=== PATIENT | male | born 1985 | race Caucasian/White ===

== ENCOUNTER 2024-10-08 03:29 | Emergency (ER) | payer BC, SELFPAY ==
[2024-10-08 03:33] VITALS: BP 142/87; PULSE 89; RESP 18; TEMP 36.5; O2SAT 98; BMI 30.3
--- NOTE | 2024-10-08 03:35 | ED_ITS ---
HPI - General Adult General Chief complaint: Sore Throat Stated complaint: tonsillitis Time Seen by Provider: 10/08/24 03:35 History of Present Illness HPI narrative: Patient is a 39-year-old gentleman comes in today with pharyngitis. He has had symptoms for last 3-4 days and was seen 2 days ago at [facility] 1 had negative strep swab. Patient states he is having troubles eating and drinking due to the pharyngitis. He has no with significant midline shift or swelling. He has some small ulcerations on the posterior pharynx. Patient has had no cough no shortness of breath no difficulties with breathing no fevers or chills. Related Data Home Medications ?Medication ?Instructions ?Recorded ?Confirmed No Known Home Medications 10/08/24 10/08/24 Allergies Allergy/AdvReac Type Severity Reaction Status Date / Time No Known Drug Allergies Allergy Verified 10/08/24 03:36 Review of Systems Status of ROS: Reports: 10 or more systems reviewed and unremarkable except as noted in History and below Exam Narrative: Exam Narrative: EXAM GENERAL: Patient appears comfortable and well. EYES: No scleral icterus. ENT: Pharyngeal injection with aphthous ulcerations. No midline shift or tonsillar enlargement. Erythema noted. THYROID: no thyroid nodules or thyromegaly. LYMPH: No supraclavicular or cervical lymphadenopathy. SKIN: Visible skin seen during exam normal or with benign process only. EXT: No dependent lower extremity pedal edema. HEART: Regular rate and rhythm with no murmurs, rubs, or gallops. LUNGS: Clear to auscultation bilaterally with no crackles or wheezes. ABD: Soft, non tender, non distended. PSYCH: Good eye contact, speech is not pressured. Course Course ED Course: Patient seen and examined. I do think that we can help him with his symptoms with short course of prednisone. I did not repeat his a rapid strep swab or any other testing as I do not believe that would be helpful. I did treated with prednisone 20 mg b.i.d. for 5 days with outpatient follow-up as needed. Discharge Plan Discharge Clinical Impression: Pharyngitis Patient Disposition: Home, Self-Care Condition: Stable Instructions: Pharyngitis (ED) Additional Instructions: Prednisone as directed Tylenol Rest Fluids Follow-up with your doctor as needed. Activity Level: No Restrictions Discharge Diet: Regular Stand Alone Forms: Pet[employer] Info Instructions
[2024-10-08 03:42] VITALS: BP 132/74; PULSE 81; RESP 18; TEMP 36.5; O2SAT 98
[2024-10-08 03:43] VITALS: BP 132/74; PULSE 81; RESP 18; TEMP 36.5
--- OUTSIDE RECORDS SUMMARY | 2024-10-08 03:49 | XMS_ITS | Clinical Summary ---
Author Organization [facility] Address [address] [place] [id number] Care Team Providers Care Meter Tester Polyphase Name Role Phone Pcp, No Primary Care Provider Unavailabl e Allergies Active Allergy Reactions Criticality Noted Date Comments Sulfa (Sulfonamide Antibiotics) *Unknown 02/03/2017 Reaction occurred during infancy, unsure of reaction Medications * This document contains information received from the source organization and may not represent a complete record from that organization. sertraline (ZOLOFT) 50 mg tablet Take 50 mg by mouth. 03/14/2019 Active lidocaine (viscous) 2 % liquidIndication s:Sore throat,Tonsillit is Swish and spit 15 mL by mouth every 4 hours if needed for Sore Throat. 100 mL 10/05/2024 Active Active Problems Problem Noted Date Diagnosed Date Tinea pedis of both feet 08/13/2017 Routine general medical exam ination at a health care facility 02/03/2017 Family history of diabetes mellitus 02/03/2017 Encounters Date Type Department Care Team Description 10/05/2024 8:51 AM CDT - 10/05/2024 10:14 AM CDT Emergency [facility] [address] [place] [address] Zaheer Loera MD Sore throat (Primary Dx); Tonsillitis Discharge Disposition: Home Self Care 10/05/2024 Travel from Last 3 Months Immunizations Immunization Administration Dates Next Due Tdap 02/03/2017 Family History Medical History Relation Name Comments Stroke Father Diabetes Maternal Grandfather Diabetes Maternal Grandmother Diabetes Mother Diabetes Other Relation Name Status Comments Father Alive Maternal Grandfather Maternal Grandmother Mother Other Alive Social History Tobacco Use Types Packs/Day Years Used Date Smoking Tobacco: Former Cigarettes Q uit: 01/24/2010 Smokeless Tobacco: Never Comments:cigarette or two on the weekends Alcohol Use Standard Drinks/Week Comments Yes 0 (1 standard drink = 0.6 oz pur e alcohol) not currently Interpersonal Safety Answer Date Record ed Are you being hit, kicked, p ushed or yelled at (see row info)? No 10/05/2024 Interpersonal Safety Abuse 12 - 18 Not on file 10/05/2024 Interpersonal Safety Ambulatory Vulnerability No t on file 10/05/2024 Sex and Gender Information Value Date Recorded Sex Assigned at Not on file Legal Sex Male 1:21 PM CDT Gender Identity Not on file Sexual Orientation Not on file Obstetrics History Last Filed Vital Signs Vital Sign Reading Time Taken Comments Blood Pressure 145/89 10/05/2024 8:20 AM CDT Pulse 88 10/05/2024 8:20 AM CDT Temperature 37.2 C (98.9 F) 10/05/2024 8:20 AM CDT Respiratory Rate 18 10/05/2024 8:20 AM CDT Oxygen Saturation 96% 10/05/2024 8:20 AM CDT Inhaled Oxygen Concentration - - Weight 94.8 kg (209 lb) 10/05/2024 8:25 AM CDT Height 175.3 cm (5' 9) 10/05/2024 8:25 AM CDT Body Mass Index 30.86 10/05/2024 8:25 AM CDT Plan of Treatment Health Maintenance Due Date Last Done Comments Depression screening for age 12+ 1999 Hepatitis C screening for ag e 18-79 08/14/2005 BMI (ht and wt on same day) for age 18+ 08/13/2018 08/13/2017, 06/20/2017, 02/03/2017 Lipids for age 35-44 08/14/2022 02/03/2017 COVID-19 vaccine series ( season) 2024 Influenza Vaccine (Season Ended) 2025 Tetanus booster 02/03/2027 02/03/2017 Tdap Completed 02/03/2017 HIV for age 15-65 Completed 06/20/2017 Pneumococcal series for age 6-49 Aged Out No longer eligible b ased on patient's age to complete this topic Procedures Procedure Name Priority Date/Time Associated Diagnosis Comments INFLUENZA A/B PCR STAT 10/05/2024 9:0 3 AM CDT COVID-19 MOLECULAR Today 10/05/2024 9: 03 AM CDT STREP A PCR STAT 10/05/2024 8:27 AM CDT THROAT RAPID STREP A WITH REFLEX STAT 10/05/2024 8:27 AM CDT ANTI HIV 1/2 Routine 06/20/2017 1:50 PM 3D TECHNOLOGIST Screen for STD (sexually transmitted disease) LIPID PANEL W REFLEX MEASURED LDL Routine 02/03/2017 4:00 PM CDT Routine general medical examination at a health care facility from Last 3 Months or Most Recently Relevant to Health Maintenance Results * COVID-19 MOLECULAR (10/05/2024 9:03 AM CDT) Pathologist [facility] COVID 19 ALLYUNIOR MOLECULAR Not detected Not detected 10/05/2024 9:39 AM CDT [facility] TESTING LABORATORY [facility] 10/05/2024 9:39 AM CDT [facility] Comment:Specimen submitted t o [facility] for testing. Other SPECIMEN FROM NASOPHARYNGEAL STRUCTURE / Unknown Non-Blood / Unknown 10/05/2024 9:03 AM CDT 10/05/2024 9:17 AM CDT Zaheer Loera MD MICROBIOLOGY Final R esult [facility] [address] [place] [address] * INFLUENZA A/B PCR (10/05/2024 9:03 AM CDT) INFLUENZA A PCR NOT Detected 10/05/2024 9:39 AM CDT [facility] INFLUENZA B PCR NOT Detected 10/05/2024 9:39 AM CDT [facility] Other SPECIMEN FROM NASOPHARYNGEAL STRUCTURE / Unknown Non-Blood / Unknown 10/05/2024 9:03 AM CDT 10/05/2024 9:17 AM CDT Zaheer Loera MD MICROBIOLOGY Final R esult Performing Organization Address City/[facility]/ZIP Co de Phone Number [facility] [address] [place] [address] * STREP A PCR (10/05/2024 8:27 AM CDT) GROUP A STREP Negative 10/05/2024 2:55 PM CDT [facility] Throat SPECIMEN FROM THROAT / Unknown Non-Blood / Unknown 10/05/2024 8:27 AM CDT 10/05/2024 8:44 AM CDT [facility] Ed Triage MICROBIOLOGY Final Result Performing Organization Address City/[facility]/ZIP Co de Phone Number [facility] [address] [place] [address], * THROAT RAPID STREP A WITH REFLEX (10/05/2024 8:27 AM CDT) STREP A ANTIGEN Negative 10/05/2024 8:44 AM CDT [facility] Comment:PCR to follow. Throat SPECIMEN FROM THROAT / Unknown Non-Blood / Unknown 10/05/2024 8:27 AM CDT 10/05/2024 8:37 AM CDT [facility] Ed Triage MICROBIOLOGY Final Result Performing Organization Address City/[facility]/ZIP Co de Phone Number [facility] [address] [place] [address] * ANTI HIV 1/2 (06/20/2017 1:50 PM 3D TECHNOLOGIST) HIV-1/HIV-2 ANTIBODY Non-Reacti ve Non-Reacti ve 06/20/2017 6:27 PM 3D TECHNOLOGIST [facility] Blood BLOOD SPECIMEN / Unknown Venipuncture / Unknown 06/20/2017 1:50 PM 3D TECHNOLOGIST 06/20/2017 2:03 PM 3D TECHNOLOGIST Narrative [facility] - 06/20/2017 6:27 PM 3D TECHNOLOGIST HIV-1 p24 and HIV-1/HIV-2 Ab not detected us Aman Randle MD SEND OUTS Final R esult [facility] [address] [place] [address], [place] * (ABNORMAL) LIPID PANEL W REFLEX MEASURED LDL (02/03/2017 4:00 PM CDT) CHOLESTEROL,TOTAL 186 100 - 199 mg/dL 02/03/2017 11:12 PM CDT [facility] TRIGLYCERIDES 281(H) <150 mg/dL 02/03/2017 11:12 PM CDT [facility] HDL CHOLESTEROL 48 >40 mg/dL 7 11:12 PM CDT [facility] NON-HDL CHOLESTEROL 138 <145 mg/dl 02/03/2017 11:12 PM CDT [facility] CHOL/HDL RATIO 3.88 <4.50 02/03/2017 11:12 PM CDT [facility] LDL CHOLESTEROL 82 <=130 mg/dL 02/03/2017 11:12 PM CDT [facility] PATIENT STATUS FASTING 02/03/2017 11:12 PM CDT [facility] Blood BLOOD SPECIMEN / Unknown Butterfly / Unknown 02/03/2017 4:00 PM CDT 02/03/2017 4:02 PM CDT us Susan Wall MD CHEMISTRY F inal Result [facility] [address] [place] [address], [place] from Last 3 Months or Most Recently Relevant to Health Maintenance Insurance [facility] Care Teams Meter Tester Polyphase Relationship Specialty Start Date End Date Pcp, No . PCP - General 10/05/24
== END 2024-10-08 03:52 | disposition home or self-care (01) ==
LOC: ED 03:46
PROVIDERS: Emergency Provider Internal Medicine
DX: J02.9 Acute pharyngitis, unspecified (principal)
CPT/HCPCS: 99283; 99284

== ENCOUNTER 2024-12-28 15:55 | Outpatient (CLI) | payer BC, SELFPAY | END 2024-12-28 15:56 | disposition home or self-care (01) | PROVIDERS: PCP Family Medicine; Visit Provider Family Medicine | DX: E03.9 Hypothyroidism, unspecified (principal); R53.83 Other fatigue; R68.82 Decreased libido; L65.9 Nonscarring hair loss, unspecified | CPT/HCPCS: 80048; 80061; 84403; 84439; 84443; 85025 ==

== ENCOUNTER 2025-03-21 15:24 | Outpatient (CLI) | payer BC, SELFPAY | END 2025-03-21 15:25 | disposition home or self-care (01) | LOC: FBOREF 15:24 | PROVIDERS: PCP Family Medicine; Visit Provider Family Medicine | DX: E03.9 Hypothyroidism, unspecified (principal) | CPT/HCPCS: 84443 ==